=== PATIENT | male | born 2000 | race Two or more races ===

== ENCOUNTER 2022-05-04 12:46 | Emergency (ER) | payer OTHER, SELFPAY ==
--- NOTE | ~2022-05-04 | XR_ITS ---
EXAMINATION: XR hand wrist RT CLINICAL INFORMATION: Reason for Exam pain COMPARISON: None. TECHNIQUE: 3 views right hand, navicular views right wrist FINDINGS: No acute fracture or dislocation. Scapholunate interval is maintained. Joint spaces throughout the hand and wrist are preserved. No chondrocalcinosis or erosions. XR/XR hand wrist RT IMPRESSION: No acute osseous injury.
[2022-05-04 12:55] VITALS: BP 122/64; PULSE 77; RESP 18; TEMP 37.2; O2SAT 98; BMI 18.2
--- NOTE | 2022-05-04 17:30 | ED.EXTPRO ---
HPI - Extremity Problem General Chief complaint: Extremity Injury, Upper Stated complaint: fall/wrist inj Time Seen by Provider: 05/04/22 17:12 Source: patient Mode of arrival: ambulatory Limitations: no limitations History of Present Illness HPI Narrative: 22-year-old male right wrist pain. Patient patient states he was playing basketball couple weeks ago and fell on outstretched right hand. Patient denies hitting head or loss of consciousness. Patient states pain on range of motion of right wrist but no swelling deformity or ecchymosis. Related Data Previous Rx's Medication Instructions Recorded naproxen 500 mg tablet 500 mg PO BID PRN pain 10 days #20 05/04/22 tabs prednisone 20 mg tablet 40 mg PO DAILY 5 days #10 tabs 05/04/22 Allergies Allergy/AdvReac Type Severity Reaction Status Date / Time amoxicillin [AMOXICILLIN] Allergy Intermediate HIVES Unverified 05/02/20 19:42 Review of Systems Review of Systems: Right wrist pain Yes all other systems are reviewed and are negative [facility] Social History Social History Advance Directives: No Advance Directives Information Provided: No Physical Exam Vital Signs: Vital Signs: Last Vital Signs Temp 98.9 F 05/04/22 12:55 Pulse 77 05/04/22 12:55 Resp 18 05/04/22 12:55 BP 122/64 05/04/22 12:55 Pulse Ox 98 05/04/22 12:55 O2 Del Method 05/04/22 12:55 BMI result Body Mass Index 18.2 Const: General: cooperative, healthy appearing, comfortable, no acute distress, well developed, alert, awake and Physically active Orientation/consciousness: oriented to person, oriented to place, oriented to time and patient oriented x3 HEENT: Head: Yes normal to inspection, Yes No palpable skull fracture present, Yes normocephalic, Yes atraumatic, No abrasion, No Acrocyanosis present, No Morejon's sign and No contusion Eyes: General: appearance normal, both eyes and all related structures Neck: Neck: Yes normal visual inspection, Yes full ROM, Yes no lymphadenopathy, Yes no meningeal signs, Yes trachea midline, Yes supple, No anterior neck swelling and No tender Chest: Chest palpation & inspection: normal inspection of the chest and normal palpation of entire chest wall Resp: Effort & Inspection: normal respiratory effort and able to speak in complete sentences Auscultation: clear to auscultation bilaterally Cardio: Jugular venous distension: no JVD Heart sounds: S1 normal heart sound present and S2 normal heart sound present GI: Inspection: Yes normal to inspection and No abdominal wall ecchymosis Palpation (GI): Soft to palpation, not firm, nontender, no guarding and not rigid : General: No CVA tenderness and Yes no CVA tenderness Back/Spine/Pelvis: Back: no CVA tenderness, No CVA tenderness and No back tenderness Skin: General skin exam: no rashes or lesions noted and elasticity normal Neuro: General: oriented to person, oriented to place, oriented to time, patient oriented x3, gait normal and no meningeal signs Extrem: General: Yes normal to inspection and Yes full ROM Hand/finger images: 1. MIld tenderness on palpation. Negative for ecchymosis, deformity, crepitus, or erythema. Motor/nerves/vascular exam intact. Pain on range of motion Psych: Appearance: grossly normal, well kempt and not disheveled Course Course Course Narrative: Patient sent for x-ray Reevaluation(s) Reevaluation #1: X-ray negative for fracture. Patient placed in Emmett wrap. Patient and mother informed to follow-up with primary care provider for MRI if no improvement. Patient will be discharged with pain meds and steroid Time: 17:39 MDM - Extremity (Nontraumatic) MDM Narrative Medical decision making narrative: Wrist sprain Discharge Plan Discharge Clinical Impression: Sprain and strain of wrist Patient Disposition: Home, Self-Care Instructions: Wrist Sprain (ED) Additional Instructions: X-ray came back negative for fractures. If he still having pain in wrist please follow-up with primary care provider for MRI. Please Return to the ED immediately for swelling, redness, bluish black discoloration, numbness, tingling, inability to move, or any other concerning symptoms. Prescriptions: New naproxen 500 mg tablet 500 mg PO BID PRN (Reason: pain) 10 Days Qty: 20 0RF prednisone 20 mg tablet 40 mg PO DAILY 5 Days Qty: 10 0RF [place]: [facility] [place] Group] (Right wrist pain) Stand Alone Forms: Work/School Release Interventions: ED Discharge Assessment Last Done: 05/04/22 17:58 Discharge Date/Time: 05/04/22 17:58 Print Language: Persian
== END 2022-05-04 17:58 | disposition home or self-care (01) ==
PROVIDERS: Emergency Provider Internal Medicine
DX: S63.501A Unspecified sprain of right wrist, initial encounter (principal); S66.911A Strain of unspecified muscle, fascia and tendon at wrist and hand level, right hand, initial encounter; W01.0XXA Fall on same level from slipping, tripping and stumbling without subsequent striking against object, initial encounter; Y93.67 Activity, basketball; Y92.310 Basketball court as the place of occurrence of the external cause; Y99.9 Unspecified external cause status
CPT/HCPCS: 73110; 73130; 99282; 99283

== ENCOUNTER 2022-05-27 15:45 | Outpatient (REF) | payer OTHER, SELFPAY ==
--- NOTE | ~2022-05-27 | XR_ITS ---
EXAMINATION: RIGHT WRIST WITH SCAPHOID VIEW. CLINICAL INFORMATION: Pain in right hand COMPARISON: None TECHNIQUE: 4 views FINDINGS: There is no visible acute fracture, dislocation or subluxation seen the soft tissues are normal. The joint spaces are maintained normal. XR/XR wrist RT w scaphoid IMPRESSION: Unremarkable right wrist exam.
== END 2022-05-27 15:46 | disposition home or self-care (01) ==
LOC: HO.HOSX 15:45
PROVIDERS: Visit Provider Physician Assistant
DX: M79.641 Pain in right hand (principal)
CPT/HCPCS: 73110

== ENCOUNTER → 2022-05-28 15:22 | Outpatient (BNVA) | payer OTHER, SELFPAY | PROVIDERS: Visit Provider Physician Assistant | DX: M79.641 Pain in right hand (principal); S63.501A Unspecified sprain of right wrist, initial encounter | CPT/HCPCS: 99202 ==

== ENCOUNTER 2023-09-20 10:34 | Emergency (ER) | payer OTHER, SELFPAY ==
--- NOTE | ~2023-09-20 | XR_ITS ---
EXAMINATION: XR CHEST CLINICAL INFORMATION: 23-year-old male with cough COMPARISON: None available. TECHNIQUE: 2 views of the chest were obtained. FINDINGS: No significant abnormality is noted involving the heart, lungs, mediastinum, bony thorax or soft tissues. XR/XR chest 2V IMPRESSION: Unremarkable examination.
[2023-09-20 10:41] VITALS: BP 115/79; PULSE 93; RESP 18; TEMP 37.3; O2SAT 97; BMI 23.5
[2023-09-20 11:11] LABS: COVID-19 Test Negative (Negative); IDNOW Serial# 9DB6401D
[2023-09-20 11:18] LABS: IDNOW Serial# 58CA691E; Influenza A Negative (Negative); Influenza B2 Negative (Negative)
--- NOTE | 2023-09-20 12:18 | ED.URI ---
HPI - URI/Sore Throat General Chief Complaint: Upper Respiratory Symptoms Stated Complaint: Cold symptoms Time Seen by Provider: 09/20/23 11:51 Source: patient, RN notes reviewed and old records reviewed Mode of arrival: ambulatory History of Present Illness HPI Narrative: 23-year-old male no significant past medical history presenting to the ED complaining of flu-like symptoms x3 days with cough, rhinorrhea, myalgias and chills. Denies reported fever, difficulty or inability to swallow, SOB/CP MD elicited complaint: rhinorrhea and nasal congestion Related Data Previous Rx's Medication Instructions Recorded naproxen 500 mg tablet 500 mg PO BID PRN pain 10 days #20 05/04/22 tabs Allergies Allergy/AdvReac Type Severity Reaction Status Date / Time amoxicillin [AMOXICILLIN] Allergy Intermediate HIVES Verified 09/20/23 10:44 Review of Systems Review of Systems: Constitutional: No Fever, +Chills, +fatigue ENT/Mouth: No Ear Pain, + Nasal Congestion, No sore throat, + Rhinorrhea, No Swallowing Difficulty Cardiovascular: No Chest Pain, No SOB Respiratory: +Cough, No Sputum, No Wheezing Gastrointestinal: No Nausea, No Vomiting, No Abdominal pain Musculoskeletal: No joint pain, + Myalgias, No Joint Swelling Skin: No Skin Lesions, No rash Neuro: No Weakness Yes all other systems are reviewed and are negative Constitutional: Constitutional: Reports as per [facility] Past Medical History Attestation statement: The following information was validated with the patient. 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 Physical Exam Vital Signs: Vital Signs: Last Vital Signs Temp 99.1 F 09/20/23 10:41 Pulse 93 09/20/23 10:41 Resp 18 09/20/23 10:41 BP 115/79 09/20/23 10:41 Pulse Ox 97 09/20/23 10:41 O2 Del Method Room Air 09/20/23 10:41 BMI result Body Mass Index 23.5 Const: General: cooperative, healthy appearing and no acute distress Orientation/consciousness: patient oriented x3 Limitations: no limitations HEENT: Head: Yes normal to inspection and Yes atraumatic Ears: hearing grossly normal bilaterally, external ears normal, TM's normal bilaterally and mastoids normal General nose exam: Normal external nose present Face and sinus: Yes normal facial exam Mouth: Normal oral and palatal mucosa present Throat: Yes posterior oropharynx normal, Yes tonsils normal, Yes uvula midline, No peritonsillar mass, No uvula laterally displaced and No uvular edema Eyes: General: appearance normal, both eyes and all related structures EOM: EOMs intact bilaterally Neck: Neck: Yes normal visual inspection and Yes no meningeal signs Resp: Effort & Inspection: normal respiratory effort and no respiratory distress Auscultation: clear to auscultation bilaterally, no crackles and no wheezes Cardio: Rate: regular rate Heart sounds: S1 normal heart sound present and S2 normal heart sound present Skin: Rashes: no rashes Wounds: no wounds Neuro: General: patient oriented x3, tone normal and no meningeal signs Cranial nerves: Yes CN's II-XII intact bilaterally Gait exam (Neuro): Normal gait present Extrem: General: Yes normal to inspection Course Course Course Narrative: Chest x-ray unremarkable. COVID and flu negative Results discussed with patient including worrisome signs and symptoms and strict return precautions, and when to return to the emergency department. They verbalized understanding and feel safe for discharge at this time. Medical Decision Making Medical Decision Making [facility] Narrative: 23-year-old male no significant past medical history presenting to the ED complaining of flu-like symptoms x3 days with cough, rhinorrhea, myalgias and chills. On exam vital signs stable, NAD, nontoxic appearing, physical exam as noted above. Lungs CTA. Oropharynx WNL. Concern for viral illness. 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 Differential Diagnosis Differential Diagnoses: The differential diagnosis associated with the presentation includes As above Lab Data [facility] Lab Attestation statement: I reviewed the patient's lab results. Labs: Lab Results 09/20/23 Range/Units 10:52 COVID-19 (MAGGIE) Negative (Negative) COVID-19 Clin Com See Note Influenza Type A (PACO) Negative (Negative) Influenza Type B (PACO) Negative (Negative) Influenza A & B Note See Note Independent Interpretation I performed an independent interpretation of an: Plain X-Ray Radiology Impression Discussion of test interpretation with radiology: I have reviewed the radiologist's reading. External Record Review External record reviewed: Inpatient record, Office record, Outpatient record, Prior outpatient labs, Prior outpatient radiology, Primary care record and Outside ED record Tests considered The following testing was considered but not selected: As above Discharge Plan Discharge Clinical Impression: Upper respiratory infection Patient Disposition: Home, Self-Care Instructions: Upper Respiratory Infection (DC) Additional Instructions: You have a virus No antibiotics are indicated at this time Make sure you are staying hydrated. Drink plenty of fluids. Rest Alternate Tylenol and Motrin at home as needed for body aches and fever Follow-up with your doctor. If symptoms persist or worsen return to the emergency department *If you are a child & not tolerating liquid or urinating for more than 6 hours, or fevers are uncontrolled with medications at home, return to the emergency department* Prescriptions: No Action naproxen 500 mg tablet 500 mg PO BID PRN (Reason: pain) 10 Days Qty: 20 0RF Referrals: Physician,None [Primary Care Provider] - 3 days Stand Alone Forms: Work/School Release Interventions: ED Discharge Assessment Last Done: 09/20/23 12:44 Discharge Date/Time: 09/20/23 12:45
== END 2023-09-20 12:45 | disposition home or self-care (01) ==
PROVIDERS: Emergency Provider Emergency Medicine
DX: J06.9 Acute upper respiratory infection, unspecified (principal); J34.89 Other specified disorders of nose and nasal sinuses; R05.9 Cough, unspecified; M79.10 Myalgia, unspecified site; Z11.52 Encounter for screening for COVID-19
CPT/HCPCS: 71046; 87502; 87635; 99283

== ENCOUNTER 2023-11-19 11:22 | Emergency (ER) | payer OTHER, SELFPAY ==
[2023-11-19 11:29] VITALS: BP 138/84; PULSE 96; RESP 16; TEMP 36.9; O2SAT 98; BMI 22.8
--- NOTE | 2023-11-19 11:31 | ED.GENADULT ---
HPI - General Adult General Chief complaint: General Medical Stated complaint: covid preethis Time Seen by Provider: 11/19/23 15:28 Source: patient Mode of arrival: ambulatory Limitations: no limitations History of Present Illness HPI narrative: Patient is a 23 year old assigned male at with a history of asthma presenting to the emergency department today with a cough, body aches, nausea, and requesting bed rest from work Patient states that over the last 2 days he has had nausea, body aches, and a cough. Patient states that he would like bed rest from work. Patient denies any dizziness, lightheadedness, abdominal pain, vomiting, fever, chills, blurry vision, double vision, loss of vision, chest pain, difficulty breathing, shortness of breath, back pain, night sweats, pain with urination, increased urinary frequency, increased urinary urgency, blood in his urine or stool, syncope or a near syncopal episode, recent trauma or falls, bowel incontinence, bladder incontinence, bowel retention, bladder retention, or any other complaints at this time. Onset (ago): day(s) (2) Severity: mild Relieving factors: none Exacerbating factors: none Associated symptoms: cough and nausea/vomiting Treatments prior to arrival: none Related Data Previous Rx's ?Medication ?Instructions ?Recorded naproxen 500 mg tablet 500 mg PO BID PRN pain 10 days #20 05/04/22 tabs Allergies Allergy/AdvReac Type Severity Reaction Status Date / Time amoxicillin [AMOXICILLIN] Allergy Intermediate HIVES Verified 11/19/23 11:32 Review of Systems Constitutional: Constitutional: Reports no additional constitutional complaints, Reports body ache(s), Denies chills, Denies fever(s) and Denies night sweats Eyes: Eyes: Reports no additional eye complaints, Denies blurry vision, Denies change in vision, Denies diplopia, Denies eye discharge, Denies loss of vision and Denies eye pain ENT: Denies dizziness Cardiovascular: Cardiovascular: Reports no additional cardiovascular complaints, Denies chest pain, Denies lightheadedness, Denies Loss of Consciousness and Denies dyspnea Respiratory: Respiratory: Reports no additional respiratory complaints, Reports cough and Denies dyspnea Gastrointestinal: Gastrointestinal: Reports no additional gastrointestinal complaints, Denies abdominal pain, Denies melena, Denies hematochezia, Denies change in bowel habits, Denies change in stool character and Reports nausea Genitourinary: Genitourinary: Reports no additional male genitourinary complaints, Denies hematuria, Denies oliguria, Denies difficulty urinating, Denies dysuria, Denies urinary frequency, Denies urinary hesitancy, Denies urinary incontinence and Denies urinary urgency Musculoskeletal: Musculoskeletal: Reports no additional musculoskeletal complaints, Denies numbness and Denies tingling Neurologic: Denies dizziness, Denies loss of vision, Denies numbness and Denies tingling Psychiatric: Psychiatric: Reports no additional psychiatric complaints Endocrine: Endocrine: Reports no additional endocrine complaints Hematologic/Lymphatic: Hematologic/Lymphatic: Reports no additional hematologic/lymphatic complaints Allergic/Immunologic: Allergic/Immunologic: Reports no additional allergic/immunologic complaints [facility] Past Medical History Attestation statement: The following information was validated with the patient. 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 Physical Exam ED Vital Signs: Vital Signs - 24 hr 11/19/23 11:29 11/19/23 15:54 Temperature 98.5 F 97.9 F Pulse Rate 96 81 Respiratory Rate 16 17 Blood Pressure 138/84 107/54 L Pulse Oximetry 98 98 Oxygen Delivery Method Room Air Room Air BMI result Body Mass Index 22.8 Const General: cooperative, no acute distress, alert and awake Nutritional Appearance: well nourished Orientation/consciousness: patient oriented x3 Limitations: no limitations [facility] Head: Yes normal to inspection and Yes atraumatic Ears: hearing grossly normal bilaterally and external ears normal General nose exam: Normal external nose present, no nasal discharge noted and no epistaxis Face and sinus: Yes normal facial exam, No abrasion and No laceration Mouth: Normal oral and palatal mucosa present, no drooling and no muffled voice Eyes General: appearance normal, both eyes and all related structures Periorbital: periorbital findings normal Eyelids: Yes eyelids normal Conjunctivae: conjunctivae normal Pupils: Equal, round and reactive pupils present EOM: EOMs intact bilaterally Neck Neck: Yes normal visual inspection, Yes full ROM and Yes no lymphadenopathy Chest Chest palpation & inspection: normal inspection of the chest Resp Effort & Inspection: normal respiratory effort and able to speak in complete sentences GI Inspection: Yes normal to inspection Neuro General: patient oriented x3 and moves all extremities Cranial nerves: Yes Equal, round and reactive pupils present Cognition (Neuro): normal cognition Motor exam (neuro): 5/5 motor strength present throughout Sensory Exam: Normal double simultaneous stimulation for sensation Coordination: [id number] test normal Extrem General: Yes normal to inspection, Yes full ROM and Yes capillary refill normal Psych Appearance: grossly normal Mental Status: mental status grossly normal Affect: normal affect Attitude: cooperative Thought process: Normal thought process present Thought content: Normal thought content present Insight: Good insight present (Psych) Course Course Course Narrative: RME performed by Alice You PA-C. Patient is a 23 year old assigned male at presenting to the emergency department with a cough. Detailed physical exam and review of systems are deferred to the head of stock. Swabs ordered. Patient placed back in the waiting room pending room availability and results. Medications Administered Discontinued Medications Generic Name Dose Route Start Last Admin Trade Name Freq PRN Reason Stop Dose Admin Dexamethasone Sodium Phosphate 10 mg 11/19/23 15:45 11/19/23 15:50 Dexamethasone Sod Phosphate 10 Mg/Ml Vial PO 11/19/23 15:46 10 mg ONCE ONE Administration Medical Decision Making Medical Decision Making [facility] Narrative: Patient is a 23 year old assigned male at with a history of asthma presenting to the emergency department today with cough, body aches, nausea, and requesting bed rest from work. Patient's physical exam was unremarkable. Patient's COVID-19, influenza, and RSV tests were negative. I explained my physical exam findings as well as all test results to the patient. I answered all questions asked by the patient. I stressed the importance of the patient taking his medication as prescribed. I stressed the importance of the patient following up with his primary care provider. I stressed the importance of the patient returning to the emergency department immediately if his symptoms were to worsen or if he were to develop any dizziness, shortness of breath, difficulty breathing, chest pain, blurry vision, loss of vision, nausea, vomiting, abdominal pain, fever, chills, back pain, or any other complaints. Patient verbalized agreement and understanding with this treatment plan and discharge. Differential Diagnosis Differential Diagnoses: The differential diagnosis associated with the presentation includes Cough COVID-19 Influenza Viral illness Admission/Observation Consideration of admission/observation: Escalation of care including admission/observation considered Patient would have been admitted to the hospital had his work up had any findings where hospital admission was appropriate and his clinical presentation warranted hospital admission. Lab Data [facility] Lab Attestation statement: I reviewed the patient's lab results. My interpretation of these results are in the [facility] Rationale portion of this note. Labs: Lab Results 11/19/23 Range/Units 13:07 Influenza Type A (PCR) NEGATIVE (Negative) Influenza Type B (PCR) NEGATIVE (Negative) RSV RNA Qual (PCR) NEGATIVE (Negative) SARS-CoV-2 RNA (RT-PCR) NEGATIVE (Negative) S. pyogenes GrpA PACO Negative (Negative) Discharge Plan Discharge Clinical Impression: Cough Patient Disposition: Home, Self-Care Instructions: Acute Cough (ED) Additional Instructions: Follow up with your primary care provider. Return to the emergency department immediately if your symptoms worsen or if you develop any dizziness, shortness of breath, difficulty breathing, chest pain, blurry vision, loss of vision, nausea, vomiting, abdominal pain, fever, chills, back pain, or any other complaints. Prescriptions: No Action naproxen 500 mg tablet 500 mg PO BID PRN (Reason: pain) 10 Days Qty: 20 0RF Referrals: [facility] [place] [facility] [Provider Group] (Call to establish and follow up with a primary care provider. If you already have a primary care provider, please follow up with them.) [facility] [place] [facility] [Provider Group] [facility] [place] [facility] [Provider Group] Stand Alone Forms: Work/School Release Interventions: ED Discharge Assessment Last Done: 11/19/23 15:54 Discharge Date/Time: 11/19/23 15:55 Print Language: Sierra Leonean
[2023-11-19 13:40] LABS: IDNOW Serial# 08D9AD1C; Strep A Nucleic Acid Negative (Negative)
[2023-11-19 13:59] LABS: Influenza A PCR NEGATIVE (Negative); Influenza B PCR NEGATIVE (Negative); Resp Syncy Virus RNA Qual PCR NEGATIVE (Negative); SARS COV2 PCR INHOUSE NEGATIVE (Negative)
[2023-11-19] MEDS: dexAMETHasone sod phosphate 10 MG/ML VIAL PO (15:50)
[2023-11-19 15:54] VITALS: BP 107/54; PULSE 81; RESP 17; TEMP 36.6; O2SAT 98
== END 2023-11-19 15:55 | disposition home or self-care (01) ==
PROVIDERS: Physician Assistant Medical; Emergency Provider Emergency Medicine
DX: R05.9 Cough, unspecified (principal); J45.909 Unspecified asthma, uncomplicated; Z88.0 Allergy status to penicillin
CPT/HCPCS: 0241U; 87651; 99282; 99283; J1100

== ENCOUNTER 2024-12-15 00:42 | Emergency (ER) | payer SELFPAY ==
[2024-12-15 00:54] VITALS: BP 129/63; PULSE 82; RESP 16; TEMP 36.3; O2SAT 97; BMI 25.0
[2024-12-15 01:29] VITALS: BP 125/62; PULSE 85; RESP 18; TEMP 36.8; O2SAT 98
--- NOTE | 2024-12-15 01:30 | MHC.EDTECH ---
at this time this tech changed over the pt into a hospital gown and obtained VS which were stable
--- NOTE | 2024-12-15 02:05 | ED_ITS ---
HPI - Skin/Abscess/Foreign Bdy General Chief complaint: Skin/Abscess/Foreign Body Stated complaint: body rash Time Seen by Provider: 12/15/24 02:01 Source: patient Mode of arrival: ambulatory Limitations: no limitations History of Present Illness ED Provider: HPI narrative: Apparently patient was cutting candie few days ago noticed rash on the both upper extremities for last 2 days with slight itching and serous discharge Related Data Previous Rx's ?Medication ?Instructions ?Recorded naproxen 500 mg tablet 500 mg PO BID PRN pain 10 days #20 05/04/22 tabs cephalexin 500 mg capsule 500 mg PO QID 10 days #40 caps 12/15/24 diphenhydramine HCl 25 mg capsule 50 mg (2 x 25 mg) PO TID PRN 12/15/24 (Benadryl) allergic reaction #20 caps doxycycline hyclate 100 mg tablet 100 mg PO BID #20 tabs 12/15/24 prednisone 10 mg tablet 10 mg PO DIRECTED #30 tabs 12/15/24 Allergies Allergy/AdvReac Type Severity Reaction Status Date / Time amoxicillin [AMOXICILLIN] Allergy Intermediate HIVES Verified 12/15/24 00:57 Review of Systems Review of Systems: Yes all other systems are reviewed and are negative PMFSH Social History Social History Smoked in Last 30 Days: No Advance Directives: No Advance Directives Information Provided: Yes Do you have a plan to hurt others: No Plan Current occupational status: employed 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 Oriented X3. No acute distress. Eyes: no pallor or icterus ENT: Pharynx normal Oral Mucosa moist tympanic membrane intact no erythema, Neck: Normal inspection. Neck supple. CVS: Normal heart rate and rhythm. Pulses normal. Respiratory: No respiratory distress. Equal air entry bilateral, no wheezing/rales/rhonchi Abd: soft, not tender Skin: Skin warm and dry. Erythematous rash in both upper extremities in the trunk with linear lines and open areas likely infected poison madisyn Extremities: No lower extremity edema, no calf tenderness Neuro: Oriented X 3. Medications Administered Discontinued Medications Generic Name Dose Route Start Last Admin Trade Name Freq PRN Reason Stop Dose Admin Cephalexin HCl 500 mg 12/15/24 02:05 12/15/24 02:30 Cephalexin 500 Mg Capsule PO 12/15/24 02:06 500 mg ONCE ONE Administration Doxycycline Monohydrate 100 mg 12/15/24 02:05 12/15/24 02:30 Doxycycline Monohydrate 100 Mg Capsule PO 12/15/24 02:06 100 mg ONCE ONE Administration Prednisone 60 mg 12/15/24 02:12/15/24 02:30 Prednisone 20 Mg Tablet PO 12/15/24 02:06 60 mg ONCE ONE Administration Medical Decision Making Medical Decision Making [facility] Narrative: Patient likely with poison madisyn with infection will prescribed prednisone doxycycline and cephalexin Discharge Plan Discharge Clinical Impression: Contact dermatitis, Cellulitis Patient Disposition: Home, Self-Care Instructions: Contact Dermatitis (ED), Cellulitis (ED) Additional Instructions: Clinically you have poison madisyn rash with infection and cellulitis Take prednisone as prescribed Antibiotic as prescribed Benadryl for itching Prescriptions: New cephalexin 500 mg capsule 500 mg PO QID 10 Days Qty: 40 0RF doxycycline hyclate 100 mg tablet 100 mg PO BID Qty: 20 0RF prednisone 10 mg tablet 10 mg PO DIRECTED Qty: 30 0RF Rx Instructions: see taper instructions; 40 mg Daily x3 days, 30 mg daily x3 days, 20 mg daily x3 days, 10 mg daily x3 days diphenhydramine HCl [Benadryl] 25 mg capsule 50 mg PO TID PRN (Reason: allergic reaction) Qty: 20 0RF No Action naproxen 500 mg tablet 500 mg PO BID PRN (Reason: pain) 10 Days Qty: 20 0RF Interventions: ED Discharge Assessment Last Done: 12/15/24 02:37 Discharge Date/Time: 12/15/24 02:40 Print Language: [place]
[2024-12-15] MEDS: cephALEXin 500 MG CAPSULE PO (02:30)
[2024-12-15] MEDS: Doxycycline Monohydrate 100 MG CAPSULE PO (02:30)
[2024-12-15] MEDS: predniSONE 20 MG TABLET 60 MG PO (02:30)
[2024-12-15 02:37] VITALS: BP 126/65; PULSE 88; RESP 16; TEMP 36.8; O2SAT 99
== END 2024-12-15 02:40 | disposition home or self-care (01) ==
PROVIDERS: Emergency Provider Internal Medicine
DX: L03.114 Cellulitis of left upper limb (principal); L03.113 Cellulitis of right upper limb; L25.9 Unspecified contact dermatitis, unspecified cause; R21 Rash and other nonspecific skin eruption
CPT/HCPCS: 99283; 99284